=== PATIENT | male | born 1950 | race Caucasian/White ===

== ENCOUNTER → 2016-11-09 | Day surgery (SDC) | payer BC ==
[~2016-11-09] VITALS: Ht 177.8 cm; Wt 125.0 kg
[~2016-11-09] MED LIST: ADVIL200 MG PO; ALEVE220 MG PO; CLOBEX59 ML TOP; LEVOTHROID (S137 MCG PO; TRIAMCINOLONE A15 G2 TOP; ZYLOPRIM300 MG PO; ZYRTEC10 MG PO; [UNRECOGNIZED DRUG - OTHER] TOP
== END | disposition disaster alternative care site (69) ==
LOC: GPOC 11-07 10:00 → GEND 08:25
PROC: 0DBK8ZX Excision of Ascending Colon, Via Natural or Artificial Opening Endoscopic, Diagnostic (ICD-10-PCS; principal; 2016-11-09)
PROC: 0DBL8ZX Excision of Transverse Colon, Via Natural or Artificial Opening Endoscopic, Diagnostic (ICD-10-PCS; 2016-11-09)
DX: Z12.11 Encounter for screening for malignant neoplasm of colon (principal); D12.2 Benign neoplasm of ascending colon; D12.3 Benign neoplasm of transverse colon; E66.9 Obesity, unspecified; Z68.41 Body mass index [BMI] 40.0-44.9, adult; Z98.890 Other specified postprocedural states
CPT/HCPCS: J2001; J7030